=== PATIENT | female | born 1960 | race Caucasian/White ===

== ENCOUNTER 2018-09-18 07:51 | Outpatient (CLI) | payer OTHER ==
[2018-09-18] MEDS ORDERED: SYNTHROID88 MCG PO (08:50)
[2018-09-18] MEDS ORDERED: COZAAR100 MG PO (08:51)
[2018-09-18] MEDS ORDERED: METFORMIN HCL500 MG PO (08:51)
[2018-09-18] MEDS ORDERED: TRULICITY1.5 MG/0.5 SUBCUTANEO (10:45)
== END 2018-09-18 08:25 | disposition home or self-care (01) ==
LOC: LAB 07:51
DX: D64.89 Other specified anemias (principal); E88.89 Other specified metabolic disorders; D68.8 Other specified coagulation defects; N39.0 Urinary tract infection, site not specified; I49.8 Other specified cardiac arrhythmias; J15.212 Pneumonia due to Methicillin resistant Staphylococcus aureus

== ENCOUNTER 2018-10-07 10:44 | Day surgery (SDC) | payer OTHER ==
[~2018-10-07 10:44] MED LIST: COZAAR100 MG PO; METFORMIN HCL500 MG PO; SYNTHROID88 MCG PO; TRULICITY1.5 MG/0.5 SUBCUTANEO
== END 2018-10-08 00:20 | disposition home or self-care (01) ==
LOC: CIR.AMB 10:44
DX: M76.72 Peroneal tendinitis, left leg (principal); M21.42 Flat foot [pes planus] (acquired), left foot

== ENCOUNTER → 2018-11-19 | Outpatient (CLI) | payer OTHER | END | disposition home or self-care (01) | LOC: RAD 501 10:56 | DX: M21.6X2 Other acquired deformities of left foot (principal) ==